=== PATIENT | female | born 1995 | race Two or more races ===

== ENCOUNTER 2018-08-25 08:27 | Emergency (ER) | payer BC ==
[~2018-08-25] VITALS: Ht 160 cm; Wt 67.1 kg
[2018-08-25] MEDS ORDERED: BLISOVI FE 1.51 EACH PO (08:44)
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
[2018-08-25 08:56] VITALS: BP 124/76
--- NOTE | 2018-08-25 08:58 | NUR ---
ED Nurse Note: PT DENIES ANY POSSIBLITY OF AND WAIVER SIGNED FOR CT. RADIOLOGY CALLED FOR CT.
--- NOTE | 2018-08-25 09:00 | NUR ---
ED Nurse Note: PT TO CT.
--- NOTE | 2018-08-25 09:09 | NUR ---
ED Nurse Note: PT BACK FROM CT.
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
[2018-08-25] MEDS ORDERED: IBUPROFEN600 MG ORAL (09:36)
[2018-08-25] MEDS ORDERED: ACETAMINOPHEN500 M3 ORAL (09:36)
[2018-08-25] MEDS ORDERED: CYCLOBENZAPRINE10 MG ORAL (09:36)
--- NOTE | 2018-08-25 09:45 | Diagnostic Imaging Report ---
Indication: Head trauma headache Technique: Contiguous 5 mm thick transaxial imaging of the head obtained in a Siemens Sensation [address] scanner. Soft tissue and bone windows generated. Automatic Exposure Control was utilized. Total Dose length Product (DLP): 1305.[address] Dose Index Volume (CTDIvol): 70.38 mGy Comparison: none Findings: The size and configuration of the cortical sulci, basal cisterns, and ventricles are within normal limits for age. There is no mass effect, midline shift, or edema identified. There is no evidence of acute hemorrhage or abnormal intra-axial or extra-axial fluid collections. The bones and soft tissues are unremarkable. Impression: No mass effect, edema or acute bleed. The CT scanner at [facility] is accredited by the [employer] and the scans are performed using dose optimization techniques as appropriate to a performed exam including Automatic Exposure control.
--- NOTE | 2018-08-25 09:52 | Diagnostic Imaging Report ---
Indication: Neck pain. Technique: Continuous helical imaging of the cervical spine was obtained transaxially from the skull base to the upper thoracic spine. 2-D coronal and sagittal reformatted images were obtained. Automatic Exposure Control was utilized. Total Dose length Product (DLP): 267.[address] Dose Index Volume (CTDIvol): 12.94 mGy Comparison: None Findings: There is no evidence of an acute fracture or malalignment. Atlantoaxial alignment appears normal. Height and configuration of the vertebral bodies and intervertebral discs are within normal limits. Uncovertebral joints and facets are unremarkable. There is no soft tissue swelling. Impression: Negative cervical spine CT The CT scanner at [facility] is accredited by the [employer] and the scans are performed using dose optimization techniques as appropriate to a performed exam including Automatic Exposure control.
--- NOTE | 2018-08-25 10:03 | NUR ---
ED Nurse Note: PT LAYING PEACEFULLY IN BED IN NAD. AOX4. PRESCRIPTIONS AND DISCHARGE PAPERWORK EXPLAINED TO PT. PT VERBALIZES UNDERSTANDING AND ALL QUESTIONS ANSWERED. PRESCRIPTIONS AND DISCHARGE PAPERWORK GIVEN TO PT AND ID WRISTBAND REMOVED. PT WALKED OUT OF ER WITH STEADY GAIT AND ALL BELONGINGS.
[2018-08-25 10:04] VITALS: BP 118/76
== END 2018-08-25 10:05 | disposition home or self-care (01) ==
LOC: EMR 09:15
DX: S13.4XXA Sprain of ligaments of cervical spine, initial encounter (principal); V43.52XA Car driver injured in collision with other type car in traffic accident, initial encounter; Y92.410 Unspecified street and highway as the place of occurrence of the external cause
CPT/HCPCS: 70450; 72125; 99284